=== PATIENT | male | born 1995 | race Asian ===

== ENCOUNTER → 2020-09-01 | Outpatient (CLI) | payer OTHER | LOC: COL.RAD 13:04 | DX: N13.2 Hydronephrosis with renal and ureteral calculous obstruction (principal) ==

== ENCOUNTER 2024-02-02 12:50 | Day surgery (SDC) | payer OTHER ==
[~2024-02-02] VITALS: Ht 172.7 cm; Wt 84.5 kg
[2024-02-02] VITALS (11 sets, daily range): BP systolic 98–122; BP diastolic 56–77; PULSE 74–97; TEMP 98.7–99.9
[~2024-02-02 12:50] MED LIST: Lidocaine PF 2% (20 MG/ML) 5 ML VIAL IV ONE; Ondansetron 4 MG/2 ML VIAL IV ONE; ceFAZolin 2 G VIAL IV ONE; dexAMETHasone 4 MG/ML VIAL IV ONE; fentaNYL 50 MCG/ML 2 ML VIAL IV ONE
[2024-02-02] MEDS ORDERED: SYNTHROID0.075 MG/T PO (13:19)
[2024-02-02] MEDS ORDERED: Morphine 4 MG/ML VIAL IV ONE (13:30)
[2024-02-02] MEDS ORDERED: Morphine 4 MG/ML VIAL IV PRN (13:30)
[2024-02-02] MEDS ORDERED: Ondansetron 4 MG/2 ML VIAL IV PRN ×2 (13:30→18:30)
[2024-02-02] MEDS ORDERED: Ketorolac 15 MG/ML VIAL IV PRN (13:30)
[2024-02-02] MEDS ORDERED: NS 1,000 ML IV SCH (13:30)
[2024-02-02] MEDS ORDERED: HYDROmorphone 1 MG/1 ML SYRINGE [PACU/SDC ONLY] IV PRN (18:00)
[2024-02-02] MEDS ORDERED: LR 1,000 ML IV SCH ×2 (18:00→21:00)
[2024-02-02] MEDS ORDERED: Meperidine 50 MG/ML 1 ML VIAL IV PRN (18:00)
[2024-02-02] MEDS ORDERED: fentaNYL 50 MCG/ML 1 ML SYRINGE/VIAL [PACU/SDC ONLY] IV PRN (18:00)
[2024-02-02] MEDS ORDERED: droPERidol 2.5 MG/ML 2 ML VIAL IV PRN (18:00)
[2024-02-02] MEDS ORDERED: hydrALAZINE 20 MG/ML 1 ML VIAL IV PRN (18:00)
[2024-02-02] MEDS ORDERED: Hyoscyamine 0.125 MG Sublingual TAB SL PRN (18:30)
[2024-02-02] MEDS ORDERED: Naloxone 0.4 MG/ML VIAL IV PRN (18:30)
[2024-02-02] MEDS ORDERED: Acetaminophen 325 MG TAB PO PRN (18:30)
[2024-02-02] MEDS ORDERED: Iohexol 300 - 10 ML VIAL URETER-R ONE (18:31)
[2024-02-02] MEDS ORDERED: Lidocaine 2% (20 MG/ML) 20 ML UROJET UR ONE (18:58)
[2024-02-02] MEDS ORDERED: Home oxyCODONE/Acetaminophen 5/325 MG #4 TAB/PACK PO ONE (19:00)
--- NOTE | 2024-02-02 19:12 | NUR ---
report received from denver hickman. pt off the floor for procedure.
[2024-02-02 21:14] LABS: ARTERIAL BLOOD GAS pH 7.36 (7.35-7.45)
[2024-02-02 21:15] LABS: ARTERIAL BLOOD GAS BASE EXCESS -5.9 (-2-2); ARTERIAL BLOOD GAS HCO3 18.5 meq/L (22-26); ARTERIAL BLOOD GAS PCO2 33.7 mmHg (35-45); ARTERIAL BLOOD GAS PO2 58.8 mmHg (80-100)
[2024-02-02 21:44] LABS: HEMATOCRIT 41.5 % (42.0-52.0); HEMOGLOBIN 15.3 g/dl (13.5-18.0); MEAN CELL VOLUME 85 fl (80.0-100.0); MEAN CORPUSCULAR HEMOGLOBIN 31 pg (27-31); MEAN CORPUSCULAR HGB CONC 37 g/dl (33.0-37.0); MEAN PLATELET VOLUME 10.3 fl (7.4-10.4); PLATELET COUNT 176 K/mm3 (130-400); RED BLOOD COUNT 4.89 M/mm3 (4.20-5.60); REDCELL DISTRIBUTION WIDTH-CV 12.8 % (11.5-14.5)
[2024-02-02 22:03] LABS: ALBUMIN 3.6 g/dL (3.5-5.0); BILIRUBIN,TOTAL 0.6 mg/dL (0.2-1.2); CALCIUM 9.1 mg/dL (8.4-10.2); CREATININE, serum 1.2 mg/dL (0.72-1.25); MAGNESIUM 1.5 mg/dL (1.6-2.6); POTASSIUM 3.9 mEq/L (3.5-4.5); TOTAL PROTEIN 6.5 g/dl (6.2-8.1)
[2024-02-02] MEDS ORDERED: cefTRIAXone 2 G in Water For Injection,Sterile 20 ML IV SCH (22:15)
--- NOTE | 2024-02-02 22:21 | NUR ---
shift assessment complete, see documentation. pt arrived to room 349 at 2044. pt denies pain. pt continues on post op vitals wnl. call light in reach. all needs met at this time.
[2024-02-02 23:06] LABS: LYMPHOCYTE 6 % (20.0-51.0); NEUTROPHILS 93 % (42.0-75.2); PLATELET ESTIMATE NORMAL (NORMAL)
[2024-02-03] VITALS (8 sets, daily range): BP systolic 90–109; BP diastolic 55–66; PULSE 82–90; TEMP 98.1–98.6
[2024-02-03 06:14] LABS: GRAN # 7.8 K/mm3 (1.4-6.5); GRAN % 83.5 % (42.2-75.2); HEMATOCRIT 39.9 % (42.0-52.0); HEMOGLOBIN 14.5 g/dl (13.5-18.0); LYMPH # 1.2 K/mm3 (1.2-3.4); LYMPH % 12.2 % (20.0-51.0); MEAN CELL VOLUME 86 fl (80.0-100.0); MEAN CORPUSCULAR HEMOGLOBIN 31 pg (27-31); MEAN CORPUSCULAR HGB CONC 36 g/dl (33.0-37.0); MEAN PLATELET VOLUME 10.7 fl (7.4-10.4); MONO # 0.4 K/mm3 (0.1-0.6); PLATELET COUNT 189 K/mm3 (130-400); RED BLOOD COUNT 4.65 M/mm3 (4.20-5.60); REDCELL DISTRIBUTION WIDTH-CV 12.8 % (11.5-14.5)
[2024-02-03 06:27] LABS: CALCIUM 8.8 mg/dL (8.4-10.2); CREATININE, serum 1.02 mg/dL (0.72-1.25); POTASSIUM 3.9 mEq/L (3.5-4.5)
--- NOTE | 2024-02-03 09:55 | NUR ---
Social Work met with patient to complete intake for discharge planning. Patient is a student at [employer], is active and independent. His girlfriend was present during intake. Patient lists his girlfriend Stoney Encarnacion ([phone]) and his sister Linda Richardson ([phone]) as his contacts. Patient utilizes [facility] for his medical care and uses [facility]. Patient denies any discharge needs at this time. Discharge plan: Home
--- NOTE | 2024-02-03 10:21 | NUR ---
PATIENT ALERT AND ORIENTED X4. VSS. PATIENT HERE FOR RIGHT KIDNEY STONE WITH URETEROSCOPY, RIGHT STENT PLACEMENT. PATIENT VOIDING WITOUT ISSUE. IV TO LEFT AC WITH LR RUNNING AT 125ML/HOUR. PATIENT ON RA. NO COMPLAINTS. TOLERATING PO. CALL LIGHT IN REACH.
--- NOTE | 2024-02-03 11:32 | NUR ---
DISCHARGE INSTRUCTIONS PROVIDED. PATIENT EDUCATION GIVEN. IV DC'D. FOLLOW UP APPOINTMENT DISCUSSED. MEDICATIONS REVIEWED. PATIENT DENIES ANY QUESTIONS OR CONCERNS. PATIENT ESCORTED OUT WITH BELONGINGS.
== END 2024-02-03 11:33 | disposition home or self-care (01) ==
LOC: SDCO 12:50 → SURG 12:50 → SDCO 02-03 11:33 → SURG 02-03 11:33 → EDSTATUS 03-06 10:07
PROVIDERS: Physician Assistant
DX: N20.1 Calculus of ureter (principal); J95.821 Acute postprocedural respiratory failure; R65.10 Systemic inflammatory response syndrome (SIRS) of non-infectious origin without acute organ dysfunction; D72.829 Elevated white blood cell count, unspecified; E03.9 Hypothyroidism, unspecified; Z79.890 Hormone replacement therapy; Z79.899 Other long term (current) drug therapy
CPT/HCPCS: OP; A9284; C1769; C2617; J0690; J0696; J1100; J2270; J2405; J2704; J3010; J7030; J7120; Q9967